=== PATIENT | female | born 1995 | race Caucasian/White ===

== ENCOUNTER 2020-07-04 07:44 | Day surgery (SDC) | payer BC ==
[2020-06-29 11:00] VITALS: BMI 38.7
[2020-07-04] MEDS ORDERED: PROPOFOL 200 MG/20 ML VIAL ONE (09:50)
[2020-07-04] MEDS ORDERED: Lidocaine 1% PF 5 ML VIAL ONE (09:50)
--- NOTE | 2020-07-04 12:03 | OP ---
DATE OF PROCEDURE: 07/04/2020 OPERATIVE PROCEDURE: Ileocolonoscopy with biopsy. PREOPERATIVE DIAGNOSES: A 24-year-old female with abdominal cramping, diarrhea over the last several months. History of weight loss of 10 pounds. No fever. No hematochezia. Undergoing colonoscopy. POSTOPERATIVE DIAGNOSIS: Normal ileocolonoscopy. DESCRIPTION OF PROCEDURE: The patient was placed on her left lateral position and was given sedation by Anesthesia Department. A rectal exam was done before scope was advanced into the rectum. No lesions felt on rectal exam. A Pentax video colonoscope was introduced into the rectum and advanced all the way to cecum. The mucosa appeared normal throughout the colon with normal vascular pattern. The patient had areas of soft stools, which had been washed out. In the appendicular opening, ileocecal valve, and cecum, no lesion seen. The scope was advanced into terminal ileum for a distance of about 20 cm. The ileum appears normal. On withdrawal of scope from the ileum to ascending colon, hepatic flexure, no lesion seen. In the transverse colon, splenic flexure, descending colon, sigmoid colon, rectum, no lesion seen. Random biopsies obtained from the ascending colon, descending colon. Job ID: [id number]
--- NOTE | 2020-07-04 17:57 | OP ---
DATE OF PROCEDURE: 07/04/2020 OPERATIVE PROCEDURE: Esophagogastroduodenoscopy with biopsies. PREOPERATIVE DIAGNOSES: A 24-year-old female with abdominal pain, nausea, and vomiting. Symptoms are chronic in nature. The patient is undergoing esophagogastroduodenoscopy. POSTOPERATIVE DIAGNOSIS: Normal exam except for mild antral gastritis. DESCRIPTION OF PROCEDURE: The patient was placed on her left lateral position and was given sedation by Anesthesia Department. A Pentax video gastroscope under direct vision passed down the oropharynx past the GE junction into the stomach and subsequently into the descending duodenum. The esophageal mucosa appeared completely normal. No esophagitis seen. In the GE junction, no lesion seen. Retroflexion failed to show any pathology in fundus or cardia. In the gastric body, gastric antrum, no lesion seen. There was an area of mild mucosal friability and erythema in the gastric antrum. In the duodenal bulb, descending duodenum, no lesion seen. Random biopsies were obtained from the descending duodenum. Also, biopsies obtained from the gastric antrum and gastric body. The stomach decompressed and the scope removed. DISCHARGE PLANNING: This is a 24-year-old female with abdominal pain, nausea, vomiting, and diarrhea over the last several months. Her stool studies were negative. Underwent EGD and colonoscopy. Both were negative. She had biopsies of the gastric antrum and gastric body and also the descending duodenum. She had biopsies of the ascending colon, descending colon. We will await the biopsy report. Based on negative endoscopic examination, it is possible that she could simply have IBS-D. If the biopsies show no pathology, we will consider treating the patient with Xifaxan 550 mg p.o. three times a day for two weeks for IBS diarrhea. Job ID: [id number]
== END 2020-07-04 09:52 | disposition home or self-care (01) ==
LOC: SDC 07:44
PROVIDERS: ATTEND Internal Medicine Gastroenterology
PROC: 0DB78ZX Excision of Stomach, Pylorus, Via Natural or Artificial Opening Endoscopic, Diagnostic (ICD-10-PCS; principal; 2020-07-04)
PROC: 0DB98ZX Excision of Duodenum, Via Natural or Artificial Opening Endoscopic, Diagnostic (ICD-10-PCS; principal; 2020-07-04)
PROC: 0DBM8ZX Excision of Descending Colon, Via Natural or Artificial Opening Endoscopic, Diagnostic (ICD-10-PCS; principal; 2020-07-04)
PROC: 0DBK8ZX Excision of Ascending Colon, Via Natural or Artificial Opening Endoscopic, Diagnostic (ICD-10-PCS; principal; 2020-07-04)
DX: K52.9 Noninfective gastroenteritis and colitis, unspecified (principal); K29.70 Gastritis, unspecified, without bleeding; R63.4 Abnormal weight loss; Z68.38 Body mass index [BMI] 38.0-38.9, adult; Z79.899 Other long term (current) drug therapy; Z88.8 Allergy status to other drugs, medicaments and biological substances
CPT/HCPCS: 88305; 88312; J2704